=== PATIENT | female | born 1945 | race Caucasian/White ===

== ENCOUNTER → 2019-08-21 16:29 | Outpatient (CLI) | payer MEDICARE, SELFPAY ==
[2019-08-21 17:20] LABS: Influenza A - CEPHEID Flu A POSITIVE (NEGATIVE); Influenza B - CEPHEID Flu B NEGATIVE (NEGATIVE)
== END ==
PROVIDERS: Visit Provider Physician Assistant
DX: R68.89 Other general symptoms and signs (principal)
CPT/HCPCS: 87502

== ENCOUNTER 2021-01-18 12:30 | Outpatient (RCR) | payer MEDICARE, SELFPAY ==
--- NOTE | 2020-10-26 17:42 | ST.OPIE ---
Visit Care Team Role Provider Type Doctor MD Lexy Primary Care Provider Non-Staff Specialty: Medical Address: Phone: Fax: Email: Other Providers Specialty: Address: Phone: Fax: Email: Attending Provider Referring Provider Specialty: Address: Phone: Fax: Email: Speech-Language Pathology Initial Evaluation CLAIMS ASSISTANT Clinical Swallow Evaluation Start: 10/26/20 09:41 Freq: Status: Active Protocol: Document 10/26/20 09:42 UZIEL (Rec: 10/26/20 09:54 [email or web address] [email or web address]) Clinical Swallow Evaluation Session Time Visit Start Time 10:30 Visit Stop Time 10:50 Total Visit Minutes 20 Visit Information Visit Number Initial Evaluation Plan of Care Dates 10/26/20 - 01/23/21 Insurance Information Medicare Referral Referring Provider Dr. 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 [Pt] reports persistent saliva drooling. Also endorses slight pain in right ear. Continues liquid diet. Reports improved swallowing. Additionally, she reports severe chest pain when she coughs. She did recently have an aggressive heimlich maneuver. Denies recent fevers , chills, n/v/d, dyspnea, dysphagia, SOB, chest pain. The pt reported that since this medical report, she was seen by oncology and will not be receiving radiation to right side d/t high risk of side effects and complications , per pt preference and MD recommendation. Subjective Observations The pt arrived on time and provided case history supplemental to medical records. She expressed primary concern of speech intelligibility and secondary concern of difficulty transporting food/liquid from oral to pharyngeal cavities. She consumes full liquid diet via syringe in order to present bolus far enough into her mouth to transport posteriorly with head tilt back. She stated that solid boluses simply sit on her tongue and she is unable to swallow. She also experiences frequent drooling. She would like to eat solid foods again and be able to have a meal with others. Reported by Patient Other Symptoms Difficulty swallowing liquids, Difficulty swallowing pills, Difficulty swallowing solids, Drooling Current Diet Thin liquids Baseline Feeding Method Independent in self-feeding Patient Questionnaire No Objective Assessment Mental Status Alert,Responsive,Cooperative Dentition Within normal limits,Missing teeth Lip Function Within normal limits Observation of Lips at Rest Symmetrical Pucker Within normal limits Lip Retraction Within normal limits Alternating Pucker/Lip Retraction Within normal limits Tongue Function Severe impairment Observations of Tongue at Rest Within normal limits Tongue Protrusion Reduced range of motion Tongue Retraction Reduced range of motion Tongue Lateralization Reduced range of motion Jaw Function Within normal limits Observations of Jaw at Rest Within normal limits Jaw Opening Within normal limits Jaw Closing Within normal limits Jaw Lateralization Within normal limits Jaw Protrusion Within normal limits Jaw Retraction Within normal limits Hard/Soft Palate Function Within normal limits Observations of Hard/Soft Palate Within normal limits Nasality Within normal limits Phonation Within normal limits Respiratory Sufficiency Within normal limits Comment Tongue is reduced in width and is bulky along blade, secondary to glossectomies and grafting. ROM is limited in all directions s/t minimal or absent lingual frenulum, anchoring tongue to floor. Elevation of tongue was insufficient for visualization of sublingual tissue; therefore, it is unclear if frenulum is just limited in size or is absent. Food and Liquid Trials Position During Assessment Upright (90 degrees) Liquids Trialed Thin Solids Trialed Puree Administration Type Straw Oral Impairment Severely impaired Oral Phase Comments The pt consumed thin liquid via straw placed at right side of oral cavity and extending to back of mouth. Pt able to produce adequate lip seal for suction. Required head tilt back for complete a/p transport of liquid bolus and swallow trigger. Mild oral residue was present and visibly pooled around lower front teeth and lip, spilling anteriorly to chin from right side of mouth. The pt was unable to swallow residue. She managed drool with tissue and expelled remaining residue by blowing into the tissue from oral cavity. Pt attempted to consume 1/2 tsp applesauce. A/P lingual transport was absent. Bolus remained on tongue blade through multiple attempts. Pt consume thin liquid with straw , which allowed her to swallow ~1/2 of the applesauce bolus with multiple attempts. She expelled the remaining bolus into a tissue. Pharyngeal Impairment Mildly impaired Pharyngeal Phase Comments Once liquid bolus was adequately transported posteriorly, swallow trigger appeared to be timely. The pt required 3-4 attempts to swallow each bolus. This appeared more related to attempts at oral a/p transport than from pharyngeal residue, but unable to confirm. The pt exhibited throat clear x1 after swallow. No other overt s/sx of aspiration were observed and the pt had no complaints of sticking sensation. Fatigue/Endurance Mild fatigue Strategies Attempted Head tilt Findings Swallowing Function Oropharyngeal phase dysphagia Swallowing Function Comments Severe oral dysphage; Mild pharyngeal dysphagia Severity of Swallow Impairment Severely impaired Contributing Factors to Swallow Impaired oral-pharyngeal Impairment transport,Excessive oral residue Prognosis Fair Based on Duration of symptoms/severity Comment The pt is highly motivated to improve function. Initial education and training was provided RE lingual exercises to improve strength and ROM for improved bolus manipulation and speech intelligibility. Impact on Safety and Functioning Risk for aspiration,Risk for inadequate nutrition/hydration Recommendations Instrumental Assessment No Swallowing Treatment Yes Frequency 1x/mo Duration 6 mos Recommended Solids Nothing by Mouth Recommended Liquids Thin Other Recommendations The pt lives in remote area of [place] but will be in [facility] monthly for medical appts with ([facility] ) and to visit her daughter who lives in [place], at which time she is able to attend CLAIMS ASSISTANT appts. Safety Precautions/Swallowing Multiple swallows Recommendations Medication Recommendations As Tolerated Education Patient/Caregiver Education Described results of evaluation,Patient expressed understanding of evaluation, Patient expressed agreement with goals & treatment plans, Patient expressed understanding of safety precautions,Patient expressed understanding of feeding recommendations,Patient requires further education/ training CLAIMS ASSISTANT Motor Speech Evaluation Start: 10/27/20 17:13 Freq: Status: Active Protocol: Document 10/26/20 17:14 UZIEL (Rec: 10/27/20 17:16 UZIEL [email or web address]) Motor Speech Evaluation Session Time Visit Start Time 10:50 Visit Stop Time 11:30 Total Visit Minutes 40 Visit Information Visit Number Initial Evaluation Plan of Care Dates 10/26/20 - 01/23/21 Insurance Information Medicare Setting Setting Outpatient Care Next Note Type Next Note Type Treatment Note Patient History Source: [place] [employer] ([employer]). Patient History See Clinical Swallow Evaluation for medical history and subjective observations. Referral Referring Physician Dr. Kelly Bhatt Reason for Referral Squamous cell carcinoma tongue Mental Status Mental Status Alert,Responsive,Cooperative Oral Motor Lips Function WNL Tongue Function Severe Impairment Observations at rest Midline; reduced bulk; evidence of skin grafting Protrusion Limited to back of lower front teeth Retraction Limited to ~1/4 behind lower front teeth Lateralization Minimal movement Involuntary Movement No involuntary movement observed; minimal elevation & depression Jaw Function WNL Soft Palate Function WNL Respiration/Phonation Tools Observations WNL Phonation Stimulus Conversation; Ena Floresstoe-2, word productions Quality WNL Other Distorted oral resonance Function WNL Conversation Stimulus Case history Quality WNL Other Distorted oral resonance Diadochokinetic Rates Speech Intelligibility Standardized Tests Assessment Name(s) Ena Lunaoe-2 Initiated; word productions Phoneme Severity Moderately Impaired Awareness/Strategy Use Description Type of awareness/use Uses consistently Findings Details Motor Speech Function Moderate Impairment Type of Impairment 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 This distorts the pt's general oral resonance and her specific ability to produce velar (/g/, /k/, ng), alveolar (/l/), palatal (j, ch), dental (voiced and voiceless th) phonemes, r-blends (br, dr, gr, and kr), and st-blends. Educated pt of findings and initiated training in lingual exercises to improve speech intelligibility. The pt was able to demonstrate understanding. Prognosis Rehabilitation Potential Good Recommendations Treatment Recommended Yes Frequency 1 visit per month Duration for 6 months Therapy Recommendations Exercises to increase lingual strength and ROM as permitted by altered anatomy; compensatory strategies to increase speech intelligibility and general expressive communication. Short Term Goals 1. The pt will perform exercises independently to increase lingual strength and ROM to improve speech intelligibility. 2. The pt will perform compensatory strategies to increase speech intelligibility and general expressive language and to improve/maintain independence and QOL. English Composition Instructor Goals 1. The pt will produce speech with 85% or greater intelligibility to unfamiliar listeners, as measured by clinician perceptual ratings and pt report, to improve her ability to communicate with others and maintain highest level of QOL. Patient/Family Education Education Described results of evaluation,Patient Understanding,Patient Refusal, Patient Needs More Info
--- NOTE | 2020-11-02 11:39 | ST.OPTN ---
Visit Care Team Role Provider Type Doctor MD Lexy Primary Care Provider Non-Staff Address: Phone: Fax: Other Providers Address: Phone: Fax: Attending Provider Referring Provider Address: Phone: Fax: SENIOR SECURITY ARCHITECT Treatment Note SENIOR SECURITY ARCHITECT Treatment Note Start: 11/02/20 11:24 Freq: Status: Active Protocol: Document 11/02/20 11:24 UZIEL (Rec: 11/02/20 11:38 UZIEL [email or web address]) Speech Pathology Treatment Note Session Time Visit Start Time 10:30 Visit Stop Time 11:20 Total Visit Minutes 50 Visit Information Visit Number 09/19 Setting Treatment Setting Outpatient Care Visit Type Note Type Treatment Note Next Note Type Next Note Type Treatment Note Subjective Observations/Patient Presentation Pt arrived on time. Completed HEP tasks daily since last visit. Chief Complaint(s) Speech,Swallowing Rehab Expectation/Goals: Patient Goals Speak clearly; eat a meal Patient Knowledge/Awareness of SENIOR SECURITY ARCHITECT Role Excellent in Treatment Patient/Caregiver Compliance with Home Excellent Exercise Program Objective Treatment Activities Developed information card stating that pt has had surgery on her tongue and has difficulty speaking. Card is wallet size for pt to carry with her and assist in communicating with others. Educated pt on results of speech articulation testing administered at last session. Pt and SENIOR SECURITY ARCHITECT developed word and minimal pair lists using target sounds identified in Initial Evaluation Report. Continued training in lingual exercises. The pt demonstrated improved ROM in extension/ retraction and elevation/ depression of both tongue tip and back of tongue, minimal lateral improvement, since last session, indicating benefit from home practice and stimulability to continue improving. Trained pt in lingual rolling movement with and without use of manipulative (e.g., oral swab, tongue depressor) to increase a/p movement necessary for bolus transfer from oral to pharyngeal cavity. The pt demonstrated understanding of task but with minimal achievement of targeted sequence. Based on other progress made since last session, anticipate this will improve with practice. Assessment Patient Response to Treatment Good Rehab Potential Good Impairments Identified Dysphagia,Oral Motor,Speech Intelligibility Progress Towards Goals Good Progress Assessment of Overall Progress Improving Assessment of Improvement The pt demonstrated improved lingual ROM, particularly in extension/retraction and elevation/depression of both tongue tip and back of tongue. Less, but some, progress made with lateral movement. She continues with difficulty producing phonemes identified as targets in evaluation. Intelligibility of target words produced in minimal pairs exercise was ~15%. However, the pt exhibits excellent awareness of oral motor movements necessary for correct production and is highly motivated to improve. She was very participatory in development of HEP tasks and appreciative of information card to assist communicating her challenges to others. Reviewed with Patient Goals,Progress Being Made,Home Exercise Program Patient/Caregiver Understanding Excellent Plan Treatment Emphasis Next Session Cont exercise training; minimal pairs; bolus transport Therapeutic Contents Client Education,Home Exercise Program,Intelligibility,Oral Motor Training,Swallowing/ Feeding Provided Patient/Caregiver Instruction Home Exercise Program,Plan of Care,Questions/Concerns Therapy Recommendations Continue with Current Program
--- NOTE | 2020-11-16 17:19 | ST.OPTN ---
Visit Care Team Role Provider Type Doctor MD Lexy Primary Care Provider Non-Staff Address: Phone: Fax: Other Providers Address: Phone: Fax: Attending Provider Referring Provider Address: Phone: Fax: WAREHOUSE PRICING AND INVENTORY CLERK Treatment Note WAREHOUSE PRICING AND INVENTORY CLERK Treatment Note Start: 11/02/20 11:24 Freq: Status: Active Protocol: Document 11/16/20 16:45 UZIEL (Rec: 11/16/20 16:46 UZIEL [email or web address]) Speech Pathology Treatment Note Session Time Visit Start Time 10:30 Visit Stop Time 11:40 Total Visit Minutes 70 Visit Information Visit Number 10/20 Plan of Care Dates 10/26/20 - 01/23/21 Insurance Information Medicare Setting Treatment Setting Outpatient Care Visit Type Note Type Treatment Note Next Note Type Next Note Type Treatment Note General Information General Information Per medical records: The pt is a 75-yr-old female with 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 [Pt] reports persistent saliva drooling. Also endorses slight pain in right ear. Continues liquid diet. Reports improved swallowing. Additionally, she reports severe chest pain when she coughs. She did recently have an aggressive heimlich maneuver. Denies recent fevers , chills, n/v/d, dyspnea, dysphagia, SOB, chest pain. The pt reported that since this medical report, she was seen by oncology and will not be receiving radiation to right side d/t high risk of side effects and complications , per pt preference and MD recommendation. Subjective Observations/Patient Presentation Pt arrived on time. Completed HEP tasks daily since last visit. She reports feeling speech is a bit improved. Her and friends (on phone) have commented they can more easily understand her. Chief Complaint(s) Speech,Swallowing Rehab Expectation/Goals: Patient Goals Speak clearly; eat a meal Patient Knowledge/Awareness of WAREHOUSE PRICING AND INVENTORY CLERK Role Excellent in Treatment Patient/Caregiver Compliance with Home Excellent Exercise Program Objective Short Term Goals 1. The pt will perform exercises independently to increase lingual strength and ROM to improve speech intelligibility and swallow function/safety. 2. The pt will perform compensatory strategies to increase speech intelligibility and general expressive language and to improve/maintain independence and QOL. Education Managers Goals 1. The pt will produce speech with 85% or greater intelligiblity to unfamiliar listeners, as measured by clinician perceptual ratings and pt report, to improve her ability to communicate with others and maintain highest level of QOL. 2. The pt will demonstrate lingual control adequate for hold and a/p transport of liquid and soft solid textures to resume oral consumption of liquids from straw and solids from spoon, improve nutrition /hydration as well as QOL. Treatment Activities Pt completed lingual exercises demonstrating minimally increased ROM. Speech intelligibility is also mildly improved; reduced effort and lip reading required from listener. Intelligibility was ~85%. Given minimal pairs including targeted phonemes th, /r/, ch, ng and nk, this WAREHOUSE PRICING AND INVENTORY CLERK was able to discriminate words with 45% acc. Targeted training of th. Pt is able to place tip of tongue between back sides of front upper/lower teeth. She tended to round her lips in compensation to make th phoneme; however, with training and demonstration, she was able to eliminate lip involvement and improve intelligibility of th in isolation and initial position of words. Needs reinforcement and practice. Attempted to manually elevate the pt's base of tongue to assist with back of tongue and soft palate contact; however, tissue at base of tongue was too stiff from radiation effects to manipulate. The pt is familiar with neck and lingual massage from first surgery 7 yrs ago. Recommended she resume massage bilaterally at neck around base of tongue, at under and sides of tongue and along frenulum to increase ROM. She was in agreement and able to perform. Assessment Patient Response to Treatment Good Rehab Potential Good Impairments Identified Dysphagia,Oral Motor,Speech Intelligibility Progress Towards Goals Good Progress Assessment of Overall Progress Improving Assessment of Improvement Pt demonstrating mildly improved speech intelligibility. She is unable to make contact between back of tongue and soft palate; therefore, /k/, /g/, nk and ng are absent from speech. Phoneme /r/ is also primarily missing, substituted with /w/. Comprehensibility of words containing these phonemes is primarily based on context. Recommended self-massage at radiated tissue areas and under sides and tip of tongue, particularly frenulum to increase ROM. Reviewed with Patient Goals,Progress Being Made,Home Exercise Program Patient/Caregiver Understanding Excellent Plan Amount of Therapy Recommended 3-4 Months Comment 1-2x/month Length of Session 45 Minutes Treatment Emphasis Next Session Cont exercise training; bolus transport Therapeutic Contents Client Education,Home Exercise Program,Intelligibility,Oral Motor Training,Swallowing/ Feeding Provided Patient/Caregiver Instruction Home Exercise Program,Plan of Care,Questions/Concerns Therapy Recommendations Continue with Current Program
--- NOTE | 2020-12-20 16:51 | ST.OPTN ---
Visit Care Team Role Provider Type Doctor MD Lexy Primary Care Provider Non-Staff Address: Phone: Fax: Other Providers Address: Phone: Fax: Attending Provider Referring Provider Address: Phone: Fax: WAX BLEACHER Treatment Note WAX BLEACHER Treatment Note Start: 11/02/20 11:24 Freq: Status: Active Protocol: Document 12/20/20 16:35 UZIEL (Rec: 12/20/20 16:51 [email or web address] [email or web address]) Speech Pathology Treatment Note Session Time Visit Start Time 10:30 Visit Stop Time 11:40 Total Visit Minutes 70 Visit Information Visit Number 11/17 Plan of Care Dates 10/26/20 - 01/23/21 Insurance Information Medicare Setting Treatment Setting Outpatient Care Visit Type Note Type Treatment Note Next Note Type Next Note Type Treatment Note General Information General Information Per medical records: The pt is a 75-yr-old female with 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 [Pt] reports persistent saliva drooling. Also endorses slight pain in right ear. Continues liquid diet. Reports improved swallowing. Additionally, she reports severe chest pain when she coughs. She did recently have an aggressive heimlich maneuver. Denies recent fevers , chills, n/v/d, dyspnea, dysphagia, SOB, chest pain. The pt reported that since this medical report, she was seen by oncology and will not be receiving radiation to right side d/t high risk of side effects and complications , per pt preference and MD recommendation. Subjective Observations/Patient Presentation Pt arrived on time. Continues to be compliant with HEP. Since last session, the pt was seen by Plastic Surgeon in [place]. The surgeon recommended waiting until 1- year s/p tongue resecction before attempting to add bulk to the pt's tongue and continuing speech/dysphagia therapy. The pt continues to be unable to consume oral intake except liquids via syringe d/t inability to propel bolus posteriorly through the oral cavity. Chief Complaint(s) Speech,Swallowing Rehab Expectation/Goals: Patient Goals Speak clearly; eat a meal Patient Knowledge/Awareness of WAX BLEACHER Role Excellent in Treatment Patient/Caregiver Compliance with Home Excellent Exercise Program Objective Short Term Goals 1. The pt will perform exercises independently to increase lingual strength and ROM to improve speech intelligibility and swallow function/safety. 2. The pt will perform compensatory strategies to increase speech intelligibility and general expressive language and to improve/maintain independence and QOL. Pouncer Machine Goals 1. The pt will produce speech with 85% or greater intelligiblity to unfamiliar listeners, as measured by clinician perceptual ratings and pt report, to improve her ability to communicate with others and maintain highest level of QOL. 2. The pt will demonstrate lingual control adequate for hold and a/p transport of liquid and soft solid textures to resume oral consumption of liquids from straw and solids from spoon, improve nutrition /hydration as well as QOL. Treatment Activities Assessed pt's lingual ROM, which is improved, particularly in elevation/ depression of tongue tip and protrusion of tongue tip to front teeth. Minimal a/p lingual movement observed with trials of movement in isolation and with object manipulation (oral swab and tongue depressor). Instructed pt in intra-oral pressure (3- sec) + swallow. Pt was able to perform and swallow saliva. The exercise was added to her HEP to increase lingual strength and improve facilitation of bolus placement and a/p propulsion for swallow, as well as increase labial and buccal strength necessary for saliva management. Recommended continued trials of liquid/ solid oral intake after 2 wks of daily intra-oral exercise. Discussed POC. Will continue to see the pt monthly when she is in [place] for follow-up appts with [facility]. Assessment Patient Response to Treatment Good Rehab Potential Good Impairments Identified Dysphagia,Oral Motor,Speech Intelligibility Progress Towards Goals Good Progress Assessment of Overall Progress Improving Assessment of Improvement Milnimally increased lingual ROM was oberved today. The pt was able to swallow saliva in timely manner following intra- oral pressure held for 3 sec. It is anticipated that this exercise will improve saliva management, as well as improve a/p propulsion necessary for swallow of liquids and solids. The pt's speech was >80% intelligible to this familiar listener with moderate effort from listener. Intelligibility significantly declines (~30%) when moderate environmental noise was added to the conversation. Reviewed with Patient Goals,Progress Being Made,Home Exercise Program Patient/Caregiver Understanding Excellent Plan Amount of Therapy Recommended 3-4 Months Comment 1-2x/month Length of Session 45 Minutes Treatment Emphasis Next Session Cont exercise training; bolus transport Therapeutic Contents Client Education,Home Exercise Program,Intelligibility,Oral Motor Training,Swallowing/ Feeding Provided Patient/Caregiver Instruction Home Exercise Program,Plan of Care,Questions/Concerns Therapy Recommendations Continue with Current Program
--- NOTE | 2021-01-18 14:33 | ST.OPTN ---
Visit Care Team Role Provider Type Doctor MD Lxey Primary Care Provider Non-Staff Address: Phone: Fax: Other Providers Address: Phone: Fax: Attending Provider Referring Provider Address: Phone: Fax: AUTOMOBILE UPHOLSTERER APPRENTICE Treatment Note AUTOMOBILE UPHOLSTERER APPRENTICE Treatment Note Start: 11/02/20 11:24 Freq: Status: Active Protocol: Document 01/18/21 13:24 UZIEL (Rec: 01/18/21 13:32 UZIEL [id number]) Speech Pathology Treatment Note Session Time Visit Start Time 12:30 Visit Stop Time 13:15 Total Visit Minutes 45 Visit Information Visit Number 4 Plan of Care Dates 10/26/20 - 01/23/21 Insurance Information Medicare Setting Treatment Setting Outpatient Care Visit Type Note Type Treatment Note Next Note Type Next Note Type Progress Note General Information General Information Per medical records: The pt is a 75-yr-old female with 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 [Pt] reports persistent saliva drooling. Also endorses slight pain in right ear. Continues liquid diet. Reports improved swallowing. Additionally, she reports severe chest pain when she coughs. She did recently have an aggressive heimlich maneuver. Denies recent fevers , chills, n/v/d, dyspnea, dysphagia, SOB, chest pain. The pt reported that since this medical report, she was seen by oncology and will not be receiving radiation to right side d/t high risk of side effects and complications , per pt preference and MD recommendation. Subjective Others Present Additional Therapist Observations/Patient Presentation Pt arrived on time. Continues to be compliant with HEP and has progressed with oral intake of liquids, able to eliminate syringe use. She is pleased with progress made with speech intelligibility. She will be seen at [facility] tomorrow and will discuss possible d/c from speech therapy. Pt will contact this clinic to inform on this plan. A speech therapy student was present throughout the session , with the pt's verbal permission. Chief Complaint(s) Speech,Swallowing Rehab Expectation/Goals: Patient Goals Speak clearly; eat a meal Patient Knowledge/Awareness of AUTOMOBILE UPHOLSTERER APPRENTICE Role Excellent in Treatment Patient/Caregiver Compliance with Home Excellent Exercise Program Objective Short Term Goals 1. The pt will perform exercises independently to increase lingual strength and ROM to improve speech intelligibility and swallow function/safety. 2. The pt will perform compensatory strategies to increase speech intelligibility and general expressive language and to improve/maintain independence and QOL. Snf Goals 1. The pt will produce speech with 85% or greater intelligiblity to unfamiliar listeners, as measured by clinician perceptual ratings and pt report, to improve her ability to communicate with others and maintain highest level of QOL. 2. The pt will demonstrate lingual control adequate for hold and a/p transport of liquid and soft solid textures to resume oral consumption of liquids from straw and solids from spoon, improve nutrition /hydration as well as QOL. Treatment Activities Pt consumed thin liquid from water bottle with mild throat clearing x1 across 4 trials. Oral prep and swallow phases are improved. Pt continues to require extended time and effort for AP bolus transport but able to accomplish in 2-3 swallows. No trials of solids were administered per pt request. She has been unsuccessful with solids in home trials. Pt managing saliva with occasional need for tissue wiping at lips. Trained pt in labial/buccal exercises to increase saliva management. Pt returned demonstration and verbalized understanding. Assessed pt's speech intelligible in conversation, which was ~85% to this familiar listener and 75% to the student, who was an unfamiliar listener. Assessment Patient Response to Treatment Good Rehab Potential Good Impairments Identified Dysphagia,Oral Motor,Speech Intelligibility Progress Towards Goals Good Progress Assessment of Overall Progress Improving Assessment of Improvement Pt is making slow but steady improvement with speech intelligibility. Continues to be limited in phoneme production by limited lingual ROM, e.g., unable to produce / k/ and /g/. Significant improvement made in ability to swallow thin liquids without use of syringe. Remains unchanged with intake of solids. Pt will consult with at [facility] tomorrow. She requests discontinuation of Speech Therapy visits with ongoing completion of HEP. This AUTOMOBILE UPHOLSTERER APPRENTICE is in agreement, as the pt is independent in HEP tasks and making progress. Reviewed with Patient Goals,Progress Being Made,Home Exercise Program Patient/Caregiver Understanding Excellent Plan Amount of Therapy Recommended 3-4 Months Comment 1-2x/month Length of Session 45 Minutes Treatment Emphasis Next Session Cont exercise training; bolus transport Therapeutic Contents Client Education,Home Exercise Program,Intelligibility,Oral Motor Training,Swallowing/ Feeding Provided Patient/Caregiver Instruction Home Exercise Program,Plan of Care,Questions/Concerns Therapy Recommendations Continue with Current Program
--- NOTE | 2021-07-16 13:15 | ST.OPDS ---
Visit Care Team Role Provider Type Doctor MD Lexy Primary Care Provider Non-Staff Address: Phone: Fax: Other Providers Address: Phone: Fax: Attending Provider Referring Provider Address: Phone: Fax: SECUR[employer] SALES REPRESENTATIVE Treatment Note SECURITY [employer] SALES REPRESENTATIVE Treatment Note Start: 11/02/20 11:24 Freq: Status: Active Protocol: Document 07/16/21 13:12 UZIEL (Rec: 07/16/21 13:14 UZIEL [email or web address]) Speech Pathology Treatment Note Visit Information Plan of Care Dates 10/26/20 - 01/23/21 Setting Treatment Setting Outpatient Care Visit Type Note Type Discharge Summary Next Note Type Next Note Type Discharge Summary General Information General Information Per medical records: The pt is a 75-yr-old female with 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 [Pt] reports persistent saliva drooling. Also endorses slight pain in right ear. Continues liquid diet. Reports improved swallowing. Additionally, she reports severe chest pain when she coughs. She did recently have an aggressive heimlich maneuver. Denies recent fevers , chills, n/v/d, dyspnea, dysphagia, SOB, chest pain. The pt reported that since this medical report, she was seen by oncology and will not be receiving radiation to right side d/t high risk of side effects and complications , per pt preference and MD recommendation. Subjective Observations/Patient Presentation The pt was last seen January 18, 2021, and is discharged from skilled intervention. Chief Complaint(s) Speech,Swallowing Rehab Expectation/Goals: Patient Goals Speak clearly; eat a meal Objective Short Term Goals 1. The pt will perform exercises independently to increase lingual strength and ROM to improve speech intelligibility and swallow function/safety. 2. The pt will perform compensatory strategies to increase speech intelligibility and general expressive language and to improve/maintain independence and QOL. Fpc Goals 1. The pt will produce speech with 85% or greater intelligiblity to unfamiliar listeners, as measured by clinician perceptual ratings and pt report, to improve her ability to communicate with others and maintain highest level of QOL. 2. The pt will demonstrate lingual control adequate for hold and a/p transport of liquid and soft solid textures to resume oral consumption of liquids from straw and solids from spoon, improve nutrition /hydration as well as QOL. Plan Frequency of Treatment No Further Therapy Therapy Recommendations Discharge from Speech Therapy
== END 2021-07-20 13:32 ==
LOC: SP 12:30
DX: C02.9 Malignant neoplasm of tongue, unspecified (principal); D00.07 Carcinoma in situ of tongue
CPT/HCPCS: 92507; 92523; 92526; 92610